=== PATIENT | male | born 1955 | race African-American/Black ===

== ENCOUNTER 2017-02-17 00:56 | Emergency (ER) | payer OTHER ==
[~2017-02-17] VITALS: Ht 172.7 cm; Wt 93.0 kg
[~2017-02-17 00:56] MED LIST: PREDNISONE20 MG ORAL; ZITHROMAX250 MG ORAL
[2017-02-17 01:45] VITALS: BP 150/98
[2017-02-17] MEDS ORDERED: DuoNeb 0.5-3(2.5)mg/3ml neb HHN ONE (02:00)
[2017-02-17] MEDS ORDERED: Solu-MEDROL 125mg Inj IVP ONE (02:15)
--- NOTE | 2017-02-17 02:47 | Emergency Room Report ---
History of Present Illness General Chief Complaint: Upper Respiratory Illness Source: Patient Present Illness HPI Patient is a 61-year-old male who presented after having increased difficulty breathing. The patient had prior history of schizophrenia. Patient stated that he was having increased worker breathing. Patient had reportedly had history of COPD. Patient stated he takes albuterol as well as antipsychotic medication. History is limited by patient's poor cooperation. Allergies: Coded Allergies: PENICILLINS (Verified Allergy, Unknown, 04/27/16) Uncoded Allergies: PENICILLIN (Allergy, Unknown, 05/27/16) Patient History Past Medical History: see triage record Reviewed Nursing Documentation: PMH: Agreed, PSxH: Agreed Nursing Documentation-PMH Hx Cardiac Problems: Yes - high cholesterol Hx Hypertension: Yes Hx Asthma: Yes Hx COPD: Yes Hx Diabetes: Yes Hx Cerebrovascular Accident: Yes Review of Systems All Other Systems: limited - by mental Physical Exam Vital Signs Date Time Temp Pulse Resp B/P Pulse Ox O2 Delivery O2 Flow Rate FiO2 02/17/17 01:40 97.9 102 20 160/100 98 Room Air Sp02 EP Interpretation: reviewed, normal General Appearance: normal inspection, no apparent distress, alert Head: atraumatic ENT: normal ENT inspection, hearing grossly normal, normal voice Neck: normal inspection, full range of motion, supple, no bony tend Respiratory: normal inspection, no retraction, wheezing Cardiovascular #1: regular rate, rhythm, no edema Gastrointestinal: normal inspection, normal bowel sounds, non tender, soft, no guarding, no hernia Genitourinary: no CVA tenderness Musculoskeletal: normal inspection, back normal, normal range of motion Neurologic: normal inspection, alert, oriented x3, responsive, 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 Because of complexity of patient' s case laboratory testing and imaging studies were ordered. The patient started on breathing treatments as well as Solu-Medrol.Chest x-ray one view interpreted by me showed cardiomegaly as well as vascular congestion. There were no definite infiltrates noted.CT the chest read by radiology showed questionable bronchial wall thickening and mid to upper lung nodule or opacities question of infectious or inflammatory in etiology. Patient started on IV fluids as well as IV antibiotics. The patient was discussed with Dr. Campuzano who agreed to accept the patient in transfer. Labs Test 02/17/17 02:40 White Blood Count 3.5 K/UL (4.8-10.8) Red Blood Count 3.68 M/UL (4.70-6.10) Hemoglobin 9.9 G/DL (14.2-18.0) Hematocrit 31.4 % (42.0-52.0) Mean Corpuscular Volume 85 FL (80-99) Mean Corpuscular Hemoglobin 26.9 PG (27.0-31.0) Mean Corpuscular Hemoglobin Concent 31.5 G/DL (32.0-36.0) Red Cell Distribution Width 15.4 % (11.6-14.8) Platelet Count 94 K/UL (150-450) Mean Platelet Volume 7.8 FL (6.5-10.1) Neutrophils (%) (Auto) % (45.0-75.0) Lymphocytes (%) (Auto) % (20.0-45.0) Monocytes (%) (Auto) % (1.0-10.0) Eosinophils (%) (Auto) % (0.0-3.0) Basophils (%) (Auto) % (0.0-2.0) Urine Color Yellow Urine Appearance Clear Urine pH 6 (4.5-8.0) Urine Specific [place] 1.015 (1.005-1.035) Urine Protein Negative (NEGATIVE) Urine Glucose (UA) 4+ (NEGATIVE) Urine Ketones Negative (NEGATIVE) Urine Occult Blood Negative (NEGATIVE) Urine Nitrite Negative (NEGATIVE) Urine Bilirubin Negative (NEGATIVE) Urine Urobilinogen 12 MG/DL (0.0-1.0) Urine Leukocyte Esterase Negative (NEGATIVE) Sodium Level 141 mEQ/L (135-145) Potassium Level 3.6 mEQ/L (3.4-4.9) Chloride Level 97 mEQ/L (98-107) Carbon Dioxide Level 27 mEQ/L (20-30) Anion Gap 17 (5-15) Blood Urea Nitrogen 11 mg/dL (7-23) Creatinine 0.8 mg/dL (0.7-1.2) Estimat Glomerular Filtration Rate > 60 mL/min (>60) Glucose Level 452 mg/dL (74-106) Lactic Acid Level 4.40 mmol/L (0.66-2.22) Calcium Level 8.7 mg/dL (8.6-10.2) Total Bilirubin 0.7 mg/dL (0.0-1.2) Aspartate Amino Transf (AST/SGOT) 29 U/L (5-40) Alanine Aminotransferase (ALT/SGPT) 50 U/L (3-41) Alkaline Phosphatase 88 U/L (40-129) Total Creatine Kinase 132 U/L (38-174) Creatine Kinase MB 2.7 ng/mL (< 6.7) Creatine Kinase MB Relative Index 2.0 Troponin I < 0.30 ng/mL (<=0.30) Total Protein 6.3 g/dL (6.6-8.7) Albumin 3.4 g/dL (3.5-5.2) Globulin 2.9 g/dL Albumin/Globulin Ratio 1.1 (1.0-2.7) Chest X-Ray Diagnostic Results EP Interpretation: Yes Findings: no effusion, no pneumothorax, no acute cardiopulmonary disease Number of Views: 1 Last Vital Signs Date Time Temp Pulse Resp B/P Pulse Ox O2 Delivery O2 Flow Rate FiO2 02/17/17 02:14 108 20 98 Room Air 02/17/17 01:40 97.9 160/100 Status: improved Disposition: XFER SHT-TRM HOSP Condition: Stable Referrals: [facility]ERR[facility] (PCP) Louis Nair Feb 17, 2017 02:47
[2017-02-17 02:59] LABS: APPEARANCE,URINE CLEAR; KETONES,URINE NEGATIVE (NEGATIVE); LEUKOCYTE ESTERASE ,URINE NEGATIVE (NEGATIVE); NITRITE,URINE NEGATIVE (NEGATIVE); PH,URINE 6 (4.5-8.0); PROTEIN,URINE NEGATIVE (NEGATIVE); UROBILINOGEN,URINE 12 MG/DL (0.0-1.0)
[2017-02-17 03:00] VITALS: BP 146/95
[2017-02-17 03:00] LABS: MEAN CORPUSCULAR HEMOGLOBIN 26.9 PG (27.0-31.0); MEAN CORPUSCULAR HGB CONC 31.5 G/DL (32.0-36.0); MEAN CORPUSCULAR VOLUME 85 FL (80-99); MEAN PLATELET VOLUME 7.8 FL (6.5-10.1); PLATELET COUNT 94 K/UL (150-450); RED BLOOD COUNT 3.68 M/UL (4.70-6.10); RED CELL DISTRIBUTION WIDTH 15.4 % (11.6-14.8); WHITE BLOOD COUNT 3.5 K/UL (4.8-10.8)
[2017-02-17 03:14] LABS: TROPONIN I < 0.30 ng/mL (<=0.30)
[2017-02-17 03:17] LABS: ALANINE AMINOTRANSFERASE 50 U/L (3-41); ALBUMIN/GLOBULIN RATIO 1.1 (1.0-2.7); ANION GAP 17 (5-15); ASPARTATE AMINO TRANSFERASE 29 U/L (5-40); CALCIUM 8.7 mg/dL (8.6-10.2); CARBON DIOXIDE 27 mEQ/L (20-30); CHLORIDE 97 mEQ/L (98-107); CREATININE 0.8 mg/dL (0.7-1.2); GLOMERULAR FILTRATION RATE > 60 mL/min (>60); HEMOLYSIS 5; POTASSIUM 3.6 mEQ/L (3.4-4.9); SODIUM 141 mEQ/L (135-145); TOTAL PROTEIN 6.3 g/dL (6.6-8.7)
[2017-02-17 03:27] LABS: CKMB 2.7 ng/mL (< 6.7); REFLEX LACTIC ACID YES OR NO YES
[2017-02-17] MEDS ORDERED: Azithromycin Inj IV ONE (03:55)
[2017-02-17] MEDS ORDERED: Azithromycin 500 MG in D5W 275 ML IVPB ONE (04:00)
[2017-02-17] MEDS ORDERED: Thiamine HCl 100 MG in D5W 55 ML IVPB ONE (04:00)
[2017-02-17] MEDS ORDERED: metroNIDAZOLE 500mg 100 ML IVPB ONE (04:00)
[2017-02-17] MEDS ORDERED: Thiamine HCl 100mg/ml Inj ONE (04:20)
[2017-02-17 04:47] VITALS: BP 145/92
[2017-02-17 05:00] VITALS: BP 145/92
--- NOTE | 2017-02-17 09:13 | Diagnostic Imaging Report ---
ndication: SOB, chest pain Technique: IV administration nonionic contrast. Spiral acquisitions obtained from the lung bases to the lung apices. Multiplanar and 3-D reconstructions were generated. Total dose length product 1024 mGycm. CTDIvol(s) 12, 37, 28 mGy Comparison: None Findings: There is considerable motion artifact. Per technologist, patient was unable hold still. This renders the images essentially nondiagnostic for evaluation of pulmonary embolus the on the main pulmonary arteries. No evidence of thoracic aortic aneurysm or dissection. Normal caliber pulmonary arteries. Normal heart size. No right ventricular chamber dilatation. Motion also limits assessment of the pulmonary parenchyma. There is a focal area of bronchiectasis are in the right upper lobe. Reticulonodular opacities are also seen in the left upper lobe. No gross infiltrate, effusion, mass, or nodule demonstrated. No definite mediastinal or hilar mass or adenopathy. The included thyroid is unremarkable. No axillary or chest wall mass or. The esophagus is grossly unremarkable. The included upper abdominal viscera is remarkable for the presence of multiple right renal cysts. Impression: Limited exam, due to motion artifact. Nondiagnostic for evaluation of possible pulmonary embolic disease. Right upper lobe scarring and associated bronchiectasis Left upper lobe reticulonodular opacities, nonspecific but most likely postinflammatory in nature No gross acute pulmonary process otherwise Right renal cysts incidentally noted This agrees with the preliminary interpretation provided overnight by [facility] teleradiology service. The CT scanner at [facility] is accredited by the [employer] and the scans are performed using protocols designed to limit radiation exposure to as low as reasonably achievable to attain images of sufficient resolution adequate for diagnostic evaluation.
--- NOTE | 2017-02-17 10:20 | Diagnostic Imaging Report ---
Indication: SOB Technique: One view of the chest Comparison: 09/24/2016 Findings: Lungs and pleural spaces are clear. The heart size is normal. No significant interim change Impression: Negative
--- NOTE | 2017-02-17 20:02 | Cardiology Report ---
APPROVED REPORT EKG Measurement Heart [id number] MD [id number] Normal sinus rhythm Normal ECG
== END 2017-02-17 05:00 | disposition short-term general hospital (02) ==
LOC: EMR 02:00
DX: J44.1 Chronic obstructive pulmonary disease with (acute) exacerbation (principal); J47.9 Bronchiectasis, uncomplicated; I10 Essential (primary) hypertension; J44.9 Chronic obstructive pulmonary disease, unspecified; J45.909 Unspecified asthma, uncomplicated; E11.9 Type 2 diabetes mellitus without complications; Z86.73 Personal history of transient ischemic attack (TIA), and cerebral infarction without residual deficits
CPT/HCPCS: 36415; 71010; 71275; 80053; 81003; 82550; 82553; 83605; 84484; 85025; 87040; 87181; 93005; 94640; 94664; 96360; 96361; 96374; 96375; 99285; J0456; J2930; Q9967; J7620

== ENCOUNTER 2018-05-19 04:18 | Emergency (ER) | payer OTHER ==
[~2018-05-19] VITALS: Ht 175.3 cm; Wt 95.3 kg
[2018-05-19] MEDS ORDERED: Ipratropium 0.02% Inh Soln 2.5ml UD HHN ONE (04:45)
[2018-05-19] MEDS ORDERED: Solu-MEDROL 125mg Inj IVP ONE (04:45)
[2018-05-19] MEDS ORDERED: Albuterol ud Inhalation HHN ONE (04:45)
[2018-05-19 05:15] LABS: BASOPHILS % (AUTO) 0.8 % (0.0-2.0); EOSINOPHILS % (AUTO) 3.4 % (0.0-3.0); HEMATOCRIT 33.6 % (42.0-52.0); HEMOGLOBIN 11.1 G/DL (14.2-18.0); LYMPHOCYTES % (AUTO) 24.5 % (20.0-45.0); MEAN CORPUSCULAR VOLUME 81 FL (80-99); MONOCYTES % (AUTO) 11.2 % (1.0-10.0); NEUTROPHILS % (AUTO) 60.1 % (45.0-75.0); PLATELET COUNT 117 K/UL (150-450); RED BLOOD COUNT 4.15 M/UL (4.70-6.10); RED CELL DISTRIBUTION WIDTH 15.3 % (11.6-14.8); WHITE BLOOD COUNT 7.8 K/UL (4.8-10.8)
--- NOTE | 2018-05-19 05:22 | Emergency Room Report ---
History of Present Illness General Chief Complaint: Dyspnea/Respdistress Source: Patient, Medical Record, EMS Present Illness HPI This is a 62-year-old homeless male who has a history of hypertension, COPD and drug abuse. He presents with shortness of breath. Someone called 911 because he complaining of short of breath. EMS said that oxidation was normal. He was short of breath so they put him on oxygen. Patient denies any chest pain. Here he is very sleepy. No fever or chills. Cough is nonproductive in nature. Denies any other complaint. Allergies: Coded Allergies: PENICILLINS (Verified Allergy, Unknown, 04/27/16) Uncoded Allergies: PENICILLIN (Allergy, Unknown, 05/27/16) Patient History Past Medical History: see triage record, old chart reviewed, HTN, asthma, COPD , psych hx Past Surgical History: other Pertinent Family History: none Social History: Reports: smoking, drug use Immunizations: other Reviewed Nursing Documentation: PMH: Agreed; PSxH: Agreed Nursing Documentation-PMH Past Medical History: No History, Except For Hx Cardiac Problems: Yes - high cholesterol Hx Hypertension: Yes Hx Asthma: Yes Hx COPD: Yes Hx Diabetes: Yes - dm2 History Of Psychiatric Problem: Yes Hx Cerebrovascular Accident: Yes Hx Seizures: Yes Review of Systems Eye: Denies: eye pain, blurred vision ENT: Denies: ear pain, nose congestion, throat swelling Respiratory: Reports: cough, shortness of breath Cardiovascular: Denies: chest pain, palpitations Gastrointestinal: Denies: abdominal pain, diarrhea, nausea, vomiting Musculoskeletal: Denies: back pain, joint pain Skin: Denies: rash Neurological: Denies: headache, numbness Endocrine: Denies: increased thirst, increased urine Hematologic/Lymphatic: Denies: easy bruising All Other Systems: negative except mentioned in HPI Physical Exam Vital Signs Date Time Temp Pulse Resp B/P (MAP) Pulse Ox O2 Delivery O2 Flow Rate FiO2 05/19/18 04:17 98.4 101 16 156/90 99 Room Air 98.4 05/19/18 05:00 2.0 28 vitals with high blood pressure Sp02 EP Interpretation: reviewed, normal General Appearance: well appearing, no apparent distress, other - sleepy Head: normocephalic, atraumatic Eyes: bilateral eye PERRL, bilateral eye EOMI ENT: hearing grossly normal, normal pharynx Neck: full range of motion, supple, no meningismus Respiratory: chest non-tender, decreased breath sounds, accessory muscle use, wheezing Cardiovascular #1: regular rate, rhythm, no murmur Gastrointestinal: normal bowel sounds, non tender, no mass, no organomegaly, no bruit, non-distended Musculoskeletal: back normal, gait/station normal, normal range of motion Neurologic: alert, oriented x3 Psychiatric: mood/affect normal Skin: warm/dry Medical Decision Making Diagnostic Impression: Primary Impression: COPD exacerbation Additional Impression: Substance abuse ER Course Patient with COPD exacerbation. Wheezing resolved after treatment. He has no inhaler. We'll put him on antibiotics inhalers and steroid. He admits to using drugs. We'll discharge home. No evidence of ACS, PE, dissection to name a few. Lab Results Impression labs unremarkable EKG Diagnostic Results Rate: normal Rhythm: NSR ST Segments: no acute changes Rhythm Strip Diag. Results Rhythm Strip Time: 05:21 EP Interpretation: yes Rate: 90 Rhythm: NSR, no PVC's Chest X-Ray Diagnostic Results Chest X-Ray Diagnostic Results : Chest X-Ray Ordered: Yes # of Views/Limited/Complete: 1 View Indication: Shortness of Breath EP Interpretation: Yes Interpretation: no consolidation, no effusion, no pneumothorax, no acute cardiopulmonary disease Impression: No acute disease - COPD Electronically Signed by: Franki Loving MD Last Vital Signs Date Time Temp Pulse Resp B/P (MAP) Pulse Ox O2 Delivery O2 Flow Rate FiO2 05/19/18 05:11 102 24 Nasal Cannula 2.0 28 05/19/18 05:00 99 05/19/18 04:17 98.4 156/90 98.4 Status: improved Disposition: HOME, SELF-CARE Condition: Stable Scripts Azithromycin* (ZITHROMAX*) 250 Mg Tablet 250 MG ORAL DAILY, #6 TAB 0 Refills Take two tables once daily for 1 day, then one tablet once daily for 4 days. Prov: FRANKI LOVING M.D. 05/19/18 Prednisone* (PREDNISONE*) 20 Mg Tablet 60 MG ORAL DAILY, #15 TAB Prov: FRANKI LOVING M.D. 05/19/18 Albuterol Sulfate* (ALBUTEROL SULFATE MDI*) 8.5 Gm Hfa.aer.ad 2 PUFF INH Q4H PRN for cough/wheezing, #1 EA 0 Refills Prov: FRANKI LOVING M.D. 05/19/18 Patient Instructions: Chronic Obstructive Pulmonary Disease Exacerbation Additional Instructions: Stop smoking. Stop using drugs. Follow-up with your doctor in 7 days. Return if worse. FRANKI LOVING M.D. May 19, 2018 05:22
[2018-05-19 05:36] LABS: INR 1.2 (0.9-1.1)
[2018-05-19 05:42] LABS: ANION GAP 6 mmol/L (5-15); BLOOD UREA NITROGEN 10 mg/dL (7-18); CALCIUM 8.4 MG/DL (8.5-10.1); CARBON DIOXIDE 28 MMOL/L (21-32); CHLORIDE 111 MMOL/L (98-107); CREATININE 1.2 MG/DL (0.55-1.30); SODIUM 145 MMOL/L (136-145)
[2018-05-19 05:57] LABS: ALANINE AMINOTRANSFERASE 56 U/L (12-78); ALBUMIN 3.6 G/DL (3.4-5.0); ALBUMIN/GLOBULIN RATIO 1.1 (1.0-2.7); ALKALINE PHOSPHATASE 83 U/L (46-116); ASPARTATE AMINO TRANSFERASE 39 U/L (15-37); BILIRUBIN,TOTAL 0.5 MG/DL (0.2-1.0); CKMB 2.8 NG/ML (0.0-3.6); CREATINE KINASE 270 U/L (26-308)
[2018-05-19] MEDS ORDERED: cefTRIAXone 1 GM in NS 55 ML IVPB ONE (06:15)
[2018-05-19] MEDS ORDERED: ALBUTEROL SULF8.5 GM INH (06:20)
[2018-05-19] MEDS ORDERED: ZITHROMAX250 MG ORAL (06:20)
[2018-05-19] MEDS ORDERED: PREDNISONE20 MG ORAL (06:20)
[2018-05-19 06:30] VITALS: BP 149/90
[2018-05-19 06:45] VITALS: BP 149/90
--- NOTE | 2018-05-19 11:04 | Diagnostic Imaging Report ---
Indication: Dyspnea Comparison: 02/17/2017 A single view chest radiograph was obtained. Findings: Cardiomediastinal appearance is within normal limits for age. Pulmonary vascularity is appropriate. The diaphragmatic contour is smooth. There is blunting of the left costophrenic angle which is probably due to pleural thickening and was seen previously. No pleural effusions are identified. The bones are unremarkable. Impression: No acute findings Scarring at the left lung base with pleural thickening.
--- NOTE | 2018-05-19 14:13 | Cardiology Report ---
APPROVED REPORT EKG Measurement Heart [id number] DC [id number] Normal sinus rhythm Normal ECG
== END 2018-05-19 06:45 | disposition home or self-care (01) ==
LOC: EDBD 04:18 → EMR 04:45
DX: J44.1 Chronic obstructive pulmonary disease with (acute) exacerbation (principal); F19.10 Other psychoactive substance abuse, uncomplicated; E11.9 Type 2 diabetes mellitus without complications; I10 Essential (primary) hypertension; Z86.73 Personal history of transient ischemic attack (TIA), and cerebral infarction without residual deficits; Z86.69 Personal history of other diseases of the nervous system and sense organs; Z88.0 Allergy status to penicillin
CPT/HCPCS: 36415; 71045; 80053; 82550; 82553; 83880; 84484; 85025; 85610; 85730; 93005; 94640; 94664; 96365; 96375; 99284; J0696; J2930; 96360; 96374